=== PATIENT | male | born 1985 | race Caucasian/White ===

== ENCOUNTER → 2017-08-10 | Outpatient (CLI) | payer OTHER ==
[~2017-08-10] MED LIST: FENTANYL CITRATE/PF 100MCG/2 ML INJ ONE; GELATIN SPONGE 12-7MM ONE; MIDAZOLAM HCL 2 MG/2 ML VIAL ONE
[2017-08-10 11:22] LABS: INR 0.93; PARTIAL THROMBOPLASTIN TIME 23.5 seconds (23.8-35.5); PROTHROMBIN TIME 11.7 seconds (11.9-14.5)
--- NOTE | 2017-08-10 13:14 | Diagnostic Imaging Report ---
PROCEDURE:US GUIDED LIVER BIOPSY COMPARISON:None. INDICATIONS:RANDOM LIVER BX FINDINGS: See below. CONCLUSION: Please see the dictation of the liver biopsy for full clinical details. Dictated by: Jack Gonzalez M.D. on 08/10/2017 at 13:24 Electronically approved by: Jack Gonzlaez M.D. on 08/10/2017 at 13:24
--- NOTE | 2017-08-10 13:29 | Diagnostic Imaging Report ---
PROCEDURE:IR BIOPSY LIVER COMPARISON:None. INDICATIONS:RANDOM LIVER BX MEDICATIONS: None. BLOOD LOSS: <1cc SAMPLES: Core biopsy samples x6. FINDINGS: After informed consent was obtained, the patient was placed in the right anterior oblique position. A safe entry route into the right lobe of the liver was identified by ultrasound and the overlying skin was prepped and draped in usual sterile fashion. Lidocaine 1% was delivered for local anesthesia. Under ultrasound guidance, a 17 gauge double-wall needle was advanced into the right lobe of the liver. 6 separate passes with an 18 gauge core biopsy gun were obtained and sent to pathology for analysis. The guide needle was removed. Post-procedure sonographic images of the liver showed no perihepatic hematoma. The patient tolerated the procedure well and there were no immediate post-procedural complications. The patient was transferred in good condition to the recovery area for observation. CONCLUSION: Uncomplicated ultrasound-guided random liver biopsy. Samples sent to Pathology for analysis. Dictated by: Jack Gonzalez M.D. on 08/10/2017 at 13:39 Electronically approved by: Jack Gonzalez M.D. on 08/10/2017 at 13:39
== END ==
LOC: US 10:01
PROVIDERS: ATTEND Internal Medicine Gastroenterology
DX: K29.00 Acute gastritis without bleeding (principal); R74.0 Nonspecific elevation of levels of transaminase and lactic acid dehydrogenase [LDH]; K51.90 Ulcerative colitis, unspecified, without complications; K21.0 Gastro-esophageal reflux disease with esophagitis; K44.9 Diaphragmatic hernia without obstruction or gangrene; E66.3 Overweight; Z71.3 Dietary counseling and surveillance
CPT/HCPCS: 36415; 47000; 76942; 85049; 85610; 85730; 88307; 88313; J2250